=== PATIENT | male | born 1950 | race Caucasian/White ===

== ENCOUNTER → 2024-01-20 06:49 | Outpatient (CLI) | payer MEDICARE, SELFPAY ==
--- NOTE | 2024-01-20 | DI.ECHO.S_ITS ---
[facility]+ [facility] : : [address] : : [place] : : [id number] : : Phone: [phone] Echocardiogram Report + + :Name: EDDY BARBER Study Date: 01/20/2024 Height: 69 in : :Hospital ReadingLocation: Weight: 163 lb : : Gender: Male BSA: 1.9 m2 : :: 1950 Age: 73 yrs BP: 121/82 mmHg: :Reason For Study: SYNCOPE AND COLLAPSE : :Ordering Physician: SIMONA, : :KARIN Performed By: Katie Hauser : :Referring: KARIN JARVIS : + + Interpretation Summary 1. The left ventricular contractility is mildly compromised. Estimate ejection fraction is 45 to 50% with mild global hypokinesis. No LVH. No diastolic dysfunction. 2. The right ventricle contractility is normal. 3. All cardiac chambers are of normal size. 4. Mild mitral regurgitation. 5. Trace to mild tricuspid regurgitation with estimated pulmonary systolic artery pressure of 60 mmHg. 6. No obvious intracardiac shunts. 7. No obvious intracardiac masses nor thrombi. 8. No hemodynamically significant pericardial effusion. 9. Low right-sided filling pressures. Conclusion: Mildly depressed left ventricular systolic function with no significant valvular abnormalities. Procedure: A two-dimensional transthoracic echocardiogram with color flow and Doppler was performed. The study quality was technically adequate. There is no prior echocardiogram noted for this patient. The patient was in sinus bradycardia with heart rates between 45-55 bpm during the exam. Left Ventricle: The left ventricle is normal in size and wall thickness. The ejection fraction is estimated to be 45-50%. Right Ventricle: The right ventricle is normal in size and function. Atria: The left atrial size is normal. Right atrial size is normal. There is no Doppler evidence for an interatrial shunt. Mitral Valve: The mitral valve is normal in structure and function. There is mild mitral regurgitation. Aortic Valve: The aortic valve is trileaflet. The aortic valve opens well. There is no aortic valve stenosis. No aortic regurgitation is present. Tricuspid Valve: The tricuspid valve is normal in structure and function. There is mild tricuspid regurgitation. The right ventricular systolic pressure is estimated to be at least 16 mmHg based on an estimated right atrial pressure of 3 mm Hg. Pulmonic Valve: The pulmonic valve is not well visualized. There is no pulmonic valvular regurgitation. Great Vessels: The aortic root is normal size. The dimensions of the ascending aorta are normal. The IVC is of normal diameter and collapses greater than 50% with a sniff. This suggests a low right atrial pressure of 3 mm Hg. Pericardium/ Pleura There is no pericardial effusion. There is no pleural effusion. MMode/2D Measurements & Calculations LVIDd: 5.5 cm LVOT diam: 2.0 cm LVIDs: 3.8 cm Ao root diam: 3.1 cm FS: 30.4 % asc Aorta Diam: 3.6 cm EPSS: 0.43 cm Ao Arch Diam (Prox Trans): 2.6 cm IVSd: 0.73 cm LVPWd: 0.72 cm LV ulloa. diameter/BSA (cm/m^2): 2.9 LV sys. diameter/BSA (cm/m^2): 2.0 LA A2 area: 19.9 cm2 RA long axis: 5.3 cm LA A4 area: 17.7 cm2 RA area: 17.2 cm2 LA length (vol): 4.9 cm RA vol: 47.8 ml LA vol: 61.1 ml RA : 25.3 ml/m2 LA vol index: 32.3 ml/m2 IVC diam: 0.99 cm RVD1 (basal): 3.9 cm RVD2 (mid): 3.2 cm TAPSE: 1.8 cm Doppler Measurements & Calculations Ao V2 max: 148.5 cm/sec LVOT Max David: 89.6 cm/sec Ao V2 mean: 109.9 cm/sec LV V1 max P.2 mmHg Ao max P.8 mmHg LV V1 VTI: 20.9 cm Ao mean P.2 mmHg SHANE(I,D): 1.8 cm2 Ao V2 VTI: 36.4 cm SHANE(V,D): 1.9 cm2 sev ratio: 0.58 SHANE indexed to BSA (cm^2/m^2): 0.95 MV E max david: 60.1 cm/sec TR max david: 179.6 cm/sec MV A max david: 58.0 cm/sec TR max P.9 mmHg MV E/A: 1.0 PA V2 max: 88.1 cm/sec Med Peak E' Advid: 7.9 cm/sec PA V2 mean: 65.1 cm/sec E/E' med: 7.6 PA mean P.8 mmHg Lat Peak E' David: 9.8 cm/sec PA pr(Accel): 25.9 mmHg E/E' lat: 6.1 E/e' average: 6.8 MV dec time: 0.19 sec SV(LVOT): 65.6 ml Reading Physician:
== END ==
PROVIDERS: PCP Internal Medicine; Referring Provider Internal Medicine; Visit Provider Internal Medicine
DX: I08.1 Rheumatic disorders of both mitral and tricuspid valves (principal); R55 Syncope and collapse
CPT/HCPCS: 93306